=== PATIENT | female | born 1990 | race Caucasian/White ===

== ENCOUNTER 2025-04-18 10:09 | Outpatient (AMB) | payer BC, SELFPAY ==
[2025-04-18 10:23] VITALS: BP 125/72; PULSE 99; RESP 18; O2SAT 99; BMI 23.5
--- NOTE | 2025-04-18 10:23 | A.OFFVIS_ITS ---
Vital Signs 04/18/25 10:23 Height 5 ft 5 in Weight 141 lb BMI 23.5 BP 125/72 Blood Pressure Location Lt brachial Position Sitting Respiration 18 Pulse 99 Pulse Source Pulse Oximeter Pulse Oximetry (%) 99 Oxygen Delivery Method Room Air Intake Visit Reasons: Costochondritis Strip Winder Required: No Allergies avocado Allergy (Unknown, Verified 03/20/25 11:38) GI intolerance and Pain nickel Allergy (Unknown, Verified 03/20/25 11:38) Rash HPI Comments Details: Unique is very pleasant 34 years old female who presents in my office with complains on pain on the right side of the chest very close to the sternum on the right side. She reported this pain started in January 14 of this year. No inciting events. Denies trauma do 9 falls denies car accidents. She reports today her pain 1 to 2/10 at rest. Her pain becomes 5/10 when she is active. She can not sleep normally because of her pain can not do activities of daily living but she can take care of herself and she can function normally. She is working full-time as a in the library. Movements aggravate her pain. Application of heat makes her pain better. Muscle relaxants prescribed to her make her pain better. She tried ibuprofen which improves her pain minimally. In terms of tissue damage he reports her pain as stabbing lancinating sharp, cutting, lacerating sensation. She had x-ray at [facility] which is not available for me. Past medical history significant for asthma depression digestive problems and headache. No surgical history. She denies smoking cigarettes denies drinking alcohol drink espresso coffee daily admits cannabis daily. Review of Systems Const All systems reviewed & are unremarkable except as noted in HPI and below ENT Reports Normal hearing present Neuro Reports Normal hearing present, Denies Abnormal speech present, Denies confusion and Denies Sensory deficit (Neuro) Psych Denies confusion Physical Exam Vital Signs: Last Vital Signs Pulse 99 04/18/25 10:23 Resp 18 04/18/25 10:23 BP 125/72 04/18/25 10:23 Pulse Ox 99 04/18/25 10:23 Oxygen Delivery Method Room Air 04/18/25 10:23 BMI result Body Mass Index 23.5 Const General: no acute distress; No confusion Nutritional Appearance: average body habitus Orientation/consciousness: patient oriented x3 and No confusion Eyes General: appearance normal, both eyes and all related structures Pupils: Equal, round and reactive pupils present EOM: EOMs intact bilaterally Neck Neck: Yes full ROM Chest Other: On palpation there is severe tenderness in projection of the 5th rib approximately. Sixth rib is also tenderness on palpation. There is no palpation tenderness in the projection of the thoracic spine. Chest palpation & inspection: normal inspection of the chest Resp Effort & Inspection: normal respiratory effort, able to speak in complete sentences, normal respiratory pattern, no audible wheezes and no cough Cardio Jugular venous distension: no JVD GI Inspection: Yes normal to inspection Neuro General: patient oriented x3, gait normal and No confusion Cranial nerves: Yes CN's II-XII intact bilaterally, Yes Equal, round and reactive pupils present, Yes Normal hearing present and Yes Ability to bilaterally elevate shoulders present Speech: No Abnormal speech present Gait exam (Neuro): Normal gait present Motor exam (neuro): 5/5 motor strength present throughout Sensory Exam: No Sensory deficit (Neuro) Extrem General: No pedal edema Psych Speech and movement: Normal speech and movement present Affect: normal affect Attitude: cooperative Thought process: Normal thought process present Thought content: Normal thought content present Insight: Good insight present (Psych) Judgement: Good judgement present (Psych) Assessment & Plan Assessment & Plan (1) Costochondritis: Code(s): M94.0 - Chondrocostal junction syndrome [Tietze] Category: Medical (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 She denies recreational drugs like cocaine however she takes cannabis every day. I offered this patient intercostal nerve block, she refused. I recommended her to continue NSAIDs application of the heat and muscle relaxants she has was prescribed in the past. If she decides to go for intercostal injection she would need to schedule appointment with me. Coding Level of Care Code New Pt Level 3 (04275) Diagnoses Costochondritis M94.0 Intercostal neuralgia G58.8
--- OUTSIDE RECORDS SUMMARY | 2025-04-18 11:38 | XMS_ITS | Clinical Summary ---
Author Organization [place] [address] [facility] Building Address [address] [place] [address] Phone Care Team Providers Care Environmental Geologist Name Role Phone Mitchel Bansal MD Primary Care Provider [phone] Allergies Active Allergy Reactions Criticality Noted Date Comments Avocado GI intolerance,Pain 04/16/2020 Nickel 02/03/2017 Nickel/metal Other Reaction(s): Rash/Dermatitis Lower abdomen Medications hydrOXYzine HCL (ATARAX) 25 mg tabletIndications: Anxiety Take 0.5-1 tablets (12.5-25 mg total) by mouth 1 (one) time each day if needed for anxiety. 90 each 1 5 06/04/20 25 Active escitalopram (LEXAPRO) 20 mg tabletIndications: Anxiety Take 1 tablet (20 mg total) by mouth 1 (one) time each day. 90 tablet 1 5 06/04/20 25 Active Necon 0.5/35, 28, 0.5-35 mg-mcg per tabletIndications: Encounter for surveillance of contraceptive pills TAKE 1 TABLET BY MOUTH DAILY. TAKING ACTIVE PILLS ONLY, NO PLACEBO BREAK. 112 tablet 1 5 Active albuterol HFA (PROAIR HFA ; PROVENTIL HFA ; VENTOLIN HFA) 90 mcg/actuation inhalerIndications :Wheezing Inhale 2 puffs by mouth every 6 (six) hours if needed for wheezing. 6.7 each 5 5 Active Active Problems Problem Noted Date Diagnosed Date Raynaud's syndrome 05/02/2024 Exercise-induced asthma 01/06/2024 History of COVID-19 01/01/2022 Wheezing 09/27/2020 Overview (05/02/2024): ? Exercise induced on albuerol inhaler Anxiety 03/09/2019 Immunizations Name Administration Dates Next Due DTP 01/01/1995, 2,06/26/1991,04/27,02/21/1991 ICmB-ALY-PIQ (Pentacel) 2mo to less than 5yo 05/20/2022,04/02/1992,06/16/1991,04/16,02/13/1991 Hepatitis B Pediatric (Enger ix B; Recombivax HB) to less than 20 yo 06/16/1996,01/28/1996,12/27/1995 Influenza trivalent, 0.5mL, preservative free (Fluarix; FluLaval; Fluzone) ages 6mo and older (Afluria) 3 years and older 05/23/2024 Influenza trivalent, with pr eservative (Fluzone; Afluria) 6mo and older 06/05/2019,05/27/2018 Influenza, Unspecified 05/17/2023 MMR, measles mumps and rubel la Live (Priorix; M-M-R II) 12mo and older 12/27/1995,04/02/1992 Meningococcal MCV4P 04/13/2005 Moderna SARS-CoV-2 COVID-19, mRNA, LNP-S, preservative free 05/09/2024,05/17/2023,07/31/2021 OPV 12/14/1994, 2,04/16/1991,02/13 Td Tetanus diptheria (Tdvax) 7yo and older 07/29/2001 Tdap Tetanus diptheria acell ular pertussis (Boostrix; Adacel) 7yo and older 07/25/2019,03/21/2007 Surgical History Surgery Date Site/Laterality Comments WISDOM TOOTH EXTRACTION PROCEDURE: HISTORICAL WISDOM TEETH EXTRACTION Medical History Medical History Date Comments Raynaud's syndrome DX:Raynaud's syndrome Anxiety state 03/09/2019 DX:Anxiety state Wheezing 09/27/2020 DX:Wheezing; COM MENT: ? Exercise induced on albuerol inhaler Family History Medical History Relation Name Comments Uterine cancer Maternal Grandmother Asthma Mother Other: hyperlipidemia Mother Hyperlipidemia Sister Breast cancer Neg Hx Colon cancer Neg Hx Ovarian cancer Neg Hx Pancreatic cancer Neg Hx Relation Name Status Comments Father Alive Maternal Grandfather Maternal Grandmother Mother Alive Paternal Grandfather Paternal Grandmother Alive Sister Alive Social History Tobacco Use Types Packs/Day Years Used Date Smoking Tobacco: Never Smokeless Tobacco: Never Tobacco Cessation:Counseling Given: Not Answered Alcohol Use Standard Drinks/Week Comments No 0 (1 standard drink = 0.6 oz pur e alcohol) Housing Instability Answer Date Recorde d Are you worried that in the next 2 months you may not have stable housing? No 11/29/2024 Food Access & Nutrition Answer Date Rec orded Do you have access to a vari ety of food including fruits and vegetables? Yes 11/29/2024 Access to Healthcare Answer Date Record ed Within the last 3 months, ho w many times did you visit the emergency department for your medical care? 0 11/29/2024 Health Literacy Answer Date Recorded How often do you need to hav e someone help you when you read instructions, pamphlets, or other written material from your doctor or pharmacy? Never 11/29/2024 Caregiver: How often do you need to have someone help you when you read instructions, pamphlets, or other written material from your doctor or pharmacy? Not on file 11/29/2024 Financial Risk Answer Date Recorded How hard is it for you to pa y for the very basics like food, housing, medical care, and air conditioning / heating? Not very hard 11/29/2024 Transportation Answer Date Recorded Has the lack of transportati on kept you from meetings, work, or from getting things needed for daily living? No Has the lack of transportati on kept you from medical appointments or from getting medications? No 11/29/2024 Social Isolation Answer Date Recorded How often do you feel lonely or isolated from th ose around you? Rarely 11/29/2024 Food Risk Answer Date Recorded Within the past 12 months we worried whether our food would run out before we got money to buy more. Never true 11/29/2024 Within the past 12 months th e food we bought just didn't last and we didn't have money to get more. Never true 11/29/2024 Dependent Care Answer Date Recorded Do you need help finding or paying for care for your loved ones. For example, child life therapist or elderly care for an older adult? No 11/29/2024 Education Answer Date Recorded Do you think completing more education or training, like finishing a GED, going to college, or learning a trade, would be helpful for you? No 11/29/2024 Employment and Income Answer Date Recor ded During the last four weeks, have you been actively looking for work? No 11/29/2024 Living Situation Answer Date Recorded What is your living situation? 0 11/29/2024 Comments No Sex and Gender Information Value Date Recorded Sex Assigned at Female 07/10/2024 2:05 PM EST Legal Sex Female 3:43 AM EST Gender Identity Female 07/10/2024 2:05 PM EST Sexual Orientation Not on file Obstetrics History Para Term AB IAB SAB Ectopic Multiple Livin g Live Births 0 0 0 0 0 0 0 0 Last Filed Vital Signs Vital Sign Reading Time Taken Comments Blood Pressure 125/78 01/15/2025 2:39 PM EDT Pulse 77 01/15/2025 2:39 PM EDT Temperature - - Respiratory Rate 18 11/08/2024 8:46 AM EDT Oxygen Saturation - - Inhaled Oxygen Concentration - - Weight 68.6 kg (151 lb 3.2 oz) 01/15/2025 2:39 P M EDT Height 165.1 cm (5' 5 ) 01/15/2025 2:39 PM EDT Body Mass Index 25.16 01/15/2025 2:39 PM EDT Plan of Treatment Upcoming Encounters Date Type Department Care Team (Late st Contact Info) Description 06/07/2025 8:30 AM EDT Office Visit [facility] [address] [place] [address] Mitchel Bansal MD [address] [place] [id number] Health Maintenance Due Date Last Done Comments Pneumococcal Vaccine: Pediatrics (0 to 5 Years) and At-Risk Patients (6 to 49 Years) (1 of 2 - PCV) 2009 COVID-19 Vaccine ( season) 2025 05/09/2024, 05/17/2023, 05/27/2022, Additional history exists Influenza Vaccine (#1) 2025 , 05/17/2023, 05/20/2022, Additional history exists Social Influencers of Health Screening 11/29/2025 11/29/2024 Cervical Cancer Screening: HPV 11/27/2026 11/27/2021 Cholesterol Screening (Lipid Panel) 12/06/2029 12/06/2024, 11/17/2021 DTaP,Tdap,and Td Vaccines (10 - Td or Tdap) 05/20/2032 05/20/2022, 07/25/2019, 03/21/2007, Additional history exists MMR Vaccines Completed 12/27/1995, 04/02/1992 Hepatitis B Vaccines Completed 06/16/1996, 01/28/1996, 12/27/1995 Meningococcal ACWY Vaccine Aged Out 04/13/2005 N o longer eligible based on patient's age to complete this topic HIV Screening Completed 02/10/2017 HIB Vaccines Completed 05/20/2022, 03/16, 04/02/1992, Additional history exists IPV Vaccines Completed 05/20/2022, 08/1994, 06/24/1992, Additional history exists Depression Screening Completed 11/29/2024, 04/27/20 Hepatitis C Screening Completed 12/06/2024 HPV Vaccines Aged Out No longer eligi ble based on patient's age to complete this topic Hepatitis A Vaccines Aged Out No long er eligible based on patient's age to complete this topic Meningococcal B Vaccine Aged Out No l onger eligible based on patient's age to complete this topic RSV Immunization Patients Under 20 months Aged Out No longer eligible based on patient's age to complete this topic Varicella Vaccines Aged Out No longer eligible based on patient's age to complete this topic Procedures Procedure Name Priority Date/Time Associated Diagnosis Comments HEPATITIS C ANTIBODY Routine 12/06/2024 9:40 AM EDT Encounter for hepatitis C screening test for low risk patient LIPID PANEL WITH REFLEX TO DIRECT LDL Routine 12/06/2024 9:40 AM EDT Screening for cardiovascular condition DEPRESSION SCREENING Routine 04/27/2024 HPV Routine 11/27/2021 HIV SCREENING Routine 02/10/2017 from Last 3 Months or Most Recently Relevant to Health Maintenance Results * Hepatitis C antibody (12/06/2024 9:40 AM EDT) [facility] Hepatitis C Antibody Negative Negative LAB CHEMISTRY METHOD 12/06/2024 2:38 PM EDT [facility] Blood Venous blood specimen / Unknown Venipuncture / Unknown 12/06/2024 9:40 AM EDT 12/06/2024 9:40 AM EDT Kim Olivo NP LAB BLOOD ORDERABLES Final Resul t [facility] [address] [place] [address], [place] [phone] * (ABNORMAL) Lipid panel with reflex to direct LDL (12/06/2024 9:40 AM EDT) Pathologist [facility] Cholesterol 211(H) 0 - 200 mg/dL LAB CHEMISTRY METHOD 12/06/2024 1:06 PM EDT [facility] Triglycerides 103 0 - 150 mg/dL LAB CHEMISTRY METHOD 12/06/2024 1:06 PM EDT [facility] HDL 69 >=40 mg/dL LAB CHEMISTRY METHOD 12/06/2024 1:06 PM EDT [facility] LDL Calculated 121(H) 0 - 100 mg/dL LAB CHEMISTRY METHOD 12/06/2024 1:06 PM EDT [facility] VLDL Cholesterol Enoch 20.6 mg/dL LAB CHEMISTRY METHOD 12/06/2024 1:06 PM EDT [facility] Non HDL Chol. (LDL+VLDL) 142 <145 mg/dL LAB CHEMISTRY METHOD 12/06/2024 1:06 PM EDT [facility] Chol/HDL Ratio 3.1 0.0 - 4.4 LAB CHEMISTRY METHOD 12/06/2024 1:06 PM EDT [facility] Blood Venous blood specimen / Unknown Venipuncture / Unknown 12/06/2024 9:40 AM EDT 12/06/2024 9:40 AM EDT Kim Olivo NP LAB BLOOD ORDERABLES Final Resul t [facility] [address] [place] [address], * Depression Screening (04/27/2024) [facility] Depression Screening Abstrcted Historical Provider HEALTH MAINTENANCE Final Result * Cervical Cancer Screening: HPV (11/27/2021) [facility] Cervical Cancer Screening: HPV Negative,A bstracted Historical Provider HEALTH MAINTENANCE Final Result * HIV Screening (02/10/2017) [facility] HIV Screening Abstracted Historical Provider HEALTH MAINTENANCE Final Result from Last 3 Months or Most Recently Relevant to Health Maintenance Insurance [facility] Care Teams Environmental Geologist Relationship Specialty Start Date End Date Mitchel Bansal MD [address] [place] [address] PCP - General Internal Medicine 06/11/21
--- OUTSIDE RECORDS SUMMARY | 2025-04-18 11:38 | XMS_ITS ---
Author Name [facility] Organization Unknown History of Medication Use Medication Directions Dispensed Refills Start Date End Date Stat us prednisone 20 mg tablet TAKE 3 TABLETS DAILY FOR 5 DAYS THEN 2 TABS DAILY FOR 2 DAYS THEN 1 TAB DAILY FOR 2 DAYS 03/07/2025 completed albuterol sulfate HFA 90 mcg/actuation aerosol inhaler INHALE 2 PUFFS BY MOUTH EVERY 6 HOURS NEEDED FOR WHEEZE active escitalopram 20 mg tablet TAKE 1 TABLET (20 MG TOTAL) BY MOUTH ONE TIME EACH DAY active Necon 0.5/35 (28) 0.5 mg-35 mcg tablet TAKE 1 TABLET BY MOUTH DAILY. TAKING ACTIVE PILLS ONLY, NO PLACEBO BREAK. active Allergies Allergen Reaction Severity Comment Documented Date Source Statu s AVOCADO [facility] NICKEL [facility] Encounters Encounter Type Encounter Reason Primary Diagnosis Location Date Ambulatory [facility] 03/08/2025 [facility] 02/21/2025 [facility] 02/21/2025 [facility] 02/21/2025 Care Team Organization Name Specialty Phone Email Start Date End Da te [facility] 02/21/2025 [facility] Mitchel Bansal Primary Care 02/18/20232023 [facility] Hailey Mcfarland Primary Care 06/23/2022 024
== END 2025-04-18 10:37 | disposition home or self-care (01) ==
LOC: HO.PMC 10:10
PROVIDERS: PCP Internal Medicine; Visit Provider Anesthesiology
DX: M94.0 Chondrocostal junction syndrome [Tietze] (principal); G58.8 Other specified mononeuropathies
CPT/HCPCS: 99203